=== PATIENT | female | born 1945 | race Caucasian/White ===

== ENCOUNTER → 2016-11-15 | Outpatient (CLI) | payer OTHER ==
[2016-11-15 16:10] LABS: CREATININE 0.71 mg/dL (0.55-1.02)
== END ==
LOC: RAD 15:29
PROVIDERS: ATTEND Psychiatry & Neurology Neurology
DX: G43.809 Other migraine, not intractable, without status migrainosus (principal); R42 Dizziness and giddiness; H93.11 Tinnitus, right ear
CPT/HCPCS: 36415; 82565; 84520

== ENCOUNTER → 2016-11-26 | Outpatient (CLI) | payer OTHER ==
--- NOTE | 2016-11-26 14:54 | MRI ---
MRI OF THE BRAIN WITHOUT AND WITH IV CONTRAST CLINICAL INDICATION: Migraine and tinnitus of the right ear TECHNIQUE: Pre-contrast T1-w, T2, and diffusion-w sequences of the brain with ADC maps. Post-contras t images of the brain. Intravenous contrast material was administered for the examination. COMPARISON: None. FINDINGS: There is no abnormal brain parenchymal signal. There is no mass or mass-effect, or abnormal extra-ax ial fluid collection. Diffusion imaging shows no hyperacute, acute, or early subacute infarction. T he ventricles are normal in size, shape and position. There are normal signal voids in the larger in tracranial vessels. The paranasal sinuses and mastoid air cells are predominantly clear. The marrow signal pattern is within normal limits. There is no abnormal brain parenchymal or leptomeningeal enhancement. IMPRESSION: 1. No acute intracranial abnormality. Reported By:
== END ==
LOC: RAD 10:52
PROVIDERS: ATTEND Psychiatry & Neurology Neurology
DX: G43.909 Migraine, unspecified, not intractable, without status migrainosus (principal); R42 Dizziness and giddiness; H93.11 Tinnitus, right ear
CPT/HCPCS: 70553